=== PATIENT | female | born 1950 | race Caucasian/White ===

== ENCOUNTER → 2016-10-11 | Outpatient (CLI) | payer MEDICARE, OTHER ==
[~2016-10-11] MED LIST: ALPRAZOLAM PO; ASPIRIN81 MG PO; AUGMENTIN PO; AUGMENTIN875 MG DOB; CRESTOR PO; FISH OIL500 M1 PO; LOPRESSOR PO; LOVAZA1 G PO; METFORMIN HCL1000 M1 PO; NEURONTIN300 MG PO; NIACIN1000 MG PO; NIASPAN PO; NORCO 10-325 TA1 TAB PO; PERCOCET 5/321 UDTAB PO; PERCOCET5/325 PO; REQUIP1 MG PO; SOMA PO; TOPROL XL PO; TOPROL XL50 MG PO; VYTORIN 10-801 UDTAB PO; VYTORIN 10/40 T1 TAB PO; XANAX0.5 MG PO; XANAX1 MG PO
--- NOTE | ~2016-10-11 | MR113 ---
[facility] A Service of [facility] & [facility] RADIOLOGY TEXT RESULTS PATIENT: ALEXIS LOCKE LOCATION: [facility] : 48 UNIT #: [id number] AGE: [address]: Elvis Quinonez MD SEX: F ORDER DR: [id number] [facility] [address] [place], [place] [address] [id number] O MR#: [id number] Acc #: [id number] NAME: ALEXIS LOCKE : 1950 SEX: F STUDY DATE/TIME: 10/11/2016 14:32 UNIT: [facility] ROOM: STUDY DESCRIPTION: MR Lumbar Wo Contrast Attending Physician: Elvis Quinonez M.D. Referring Physician: Elvis Quinonez M.D. Ordering Physician: Elvis Quinonez M.D. Primary Care Physician: Elvis Quinonez M.D. MRI CENTER REPORT This report is preliminary unless electronic signature is present. EXAM Lumbar spine MRI. HISTORY Back pain chronically since 2010 but worse over the past 3-4 months. TECHNIQUE Multiplanar imaging of the lumbar spine was performed with short and long TR and compared to a previous examination from 01/13/2011. FINDINGS Alignment is satisfactory. In the upper lumbar spine, there is mild disc desiccation at L1-2 and L2-3. There is a small disc protrusion at L2-3 at the entrance to the foramen on the left. It does not cause significant foraminal narrowing. Moderate bilateral facet disease is seen at this level with mild central stenosis. At L3-4, the disc is collapsed with reactive endplate changes and broad-based posterior disc bulging. This is accompanied by moderate bilateral facet hypertrophy and results in moderate central stenosis and moderate bilateral foraminal stenosis. At L4-5, the disc is collapsed with reactive endplate changes and diffuse posterior disc bulging as well as mild facet hypertrophy. Central stenosis is mild. Foraminal stenosis is moderately severe on both sides and symmetric. At L5-S1, the disc is collapsed with mild broad-based posterior disc bulging and mild to moderate bilateral facet hypertrophy. There is no significant central stenosis. Foraminal stenosis is mild bilaterally. Since the previous examination, degenerative changes of the lower 3 lumbar discs show significant progression. [facility] A Service of [facility] RADIOLOGY TEXT RESULTS PATIENT: ALEXIS LOCKE LOCATION: [facility] : [birth year] UNIT #: [id number] AGE: [address]: Elvis Quinonez MD SEX: F ORDER DR: The conus is normal. There is no evidence of marrow edema to suggest a fracture. No paraspinous masses are seen. IMPRESSION Degenerative disc and facet disease as described above level by level. Significant progression of degenerative disc disease is noted at the lower 3 lumbar levels since 2010. No discrete disc herniation is seen. Foraminal stenosis is most prominent at L4-5 bilaterally. Dictated by... Joao Luke M.D. THIS IS AN ELECTRONICALLY VERIFIED REPORT Joao Luke M.D. at 10/12/2016 3:39 PM SARI/misha TD: 10/12/2016 08:52 JOB #: [id number] MRI CENTER REPORT Page 1 of 1 COPY
== END | disposition home or self-care (01) ==
LOC: CMRI 13:43
DX: M51.36 Other intervertebral disc degeneration, lumbar region (principal)
CPT/HCPCS: 72148